=== PATIENT | female | born 1975 | race Caucasian/White ===

== ENCOUNTER 2017-06-24 04:05 | Emergency (ER) | payer MEDICAID ==
[2017-06-24] MEDS: morphine 4 MG/ML VIAL IV ×2 (05:43→07:10)
[2017-06-24] MEDS: ONDANSETRON 4 MG INJ IV ×3 (05:43→07:10)
[2017-06-24 05:47] LABS: ADD MAN DIFF? NO
[2017-06-24 05:53] LABS: WHITE BLOOD COUNT 9.9 10^3/ul (4.8-10.8)
[2017-06-24 05:53] LABS: BASOPHILS % 0.4 % (0.0-2.0); EOSINOPHILS % 0.3 % (0.0-7.0); HEMATOCRIT 42.9 % (37.0-47.0); HEMOGLOBIN 13.6 g/dl (12.0-16.0); LYMPHOCYTES # 1.9 10^3/ul (0.8-2.9); LYMPHOCYTES % 18.9 % (15.0-51.0); MEAN CORPUSCULAR HEMOGLOBIN 23.7 pg (29.0-33.0); MEAN CORPUSCULAR HGB CONC 31.7 g/dl (32.0-37.0); MEAN CORPUSCULAR VOLUME 74.6 fl (82.0-101.0); MEAN PLATELET VOLUME 10.2 fl (7.4-10.4); MONOCYTE # 0.6 10^3/ul (0.3-0.9); MONOCYTES % 5.8 % (0.0-11.0); NEUTROPHIL # 7.3 10^3/ul (1.6-7.5); NEUTROPHILS % 74.3 % (39.0-77.0); PLATELET COUNT 332 10^3/UL (140-415); RED BLOOD COUNT 5.75 10^6/ul (4.20-5.40); RED CELL DISTRIBUTION WIDTH 16.6 % (11.5-14.5)
[2017-06-24 06:15] LABS: CREATINE KINASE 81 IU/L (23-200)
[2017-06-24 06:21] LABS: CK INDEX 1.3; CK-MB 1.05 ng/ml (0.0-2.4)
[2017-06-24 06:22] LABS: TROPONIN-I < 0.012 ng/ml (0.00-0.12)
[2017-06-24] MEDS: LIDOCAINE/MYLANTA 40 ML BTL PO (06:27)
[2017-06-24] MEDS: ASPIRIN 325 MG TAB PO (06:27)
[2017-06-24 06:36] LABS: ANION GAP 20 (8-16); BLOOD UREA NITROGEN 11 mg/dl (7-20); CALCIUM 9.9 mg/dl (8.4-10.2); CARBON DIOXIDE 25 mmol/L (21-31); CHLORIDE 104 mmol/L (97-110); CREATININE 0.69 mg/dl (0.44-1.00); GLUCOSE 139 mg/dl (70-220); POTASSIUM 4.2 mmol/L (3.5-5.1); SODIUM 145 mmol/L (135-144)
[2017-06-24 06:44] LABS: B-TYPE NATRIURETIC PEPTIDE 58 PG/ML (0-125)
[2017-06-24] MEDS: DICYCLOMINE 20 MG INJ IM (07:11)
[2017-06-24 10:05] LABS: ALANINE AMINOTRANSFERASE 38 IU/L (13-69); ALBUMIN 4.7 g/dl (3.3-4.9); ALKALINE PHOSPHATASE 126 IU/L (42-121); ASPARTATE AMINO TRANSFERASE 29 IU/L (15-46); BILIRUBIN,INDIRECT 0.2 mg/dl (0-1.1); BILIRUBIN,TOTAL 0.2 mg/dl (0.2-1.3); TOTAL PROTEIN 8.1 g/dl (6.1-8.1)
== END 2017-06-24 08:33 | disposition home or self-care (01) ==
LOC: E/R 04:05
DX: K80.20 Calculus of gallbladder without cholecystitis without obstruction (principal)
CPT/HCPCS: 36415; 71045; 76705; 80048; 80076; 82550; 82553; 83880; 84484; 85025; 93005; 96372; 96374; 96375; 96376; 99285-25